=== PATIENT | female | born 1975 | race Caucasian/White ===

== ENCOUNTER 2020-01-13 11:35 | Outpatient (CLI) | payer BC, SELFPAY ==
--- NOTE | ~2020-01-13 | MMUS_ITS ---
MM diagnostic [facility] BI w lin, US breast LT limited DATE: 01/13/2020 12:11 (accession [id number]), 01/13/2020 12:56 (accession [id number]) INDICATION: Screening TECHNIQUE: Digital MLO and CC Tomosynthesis with composite 2-D views. Computer-aided detection. COMPARISON: 06/17/2019 diagnostic left digital mammogram and left Limited breast ultrasound 11/07/2018 diagnostic left digital mammogram and limited left breast ultrasound 10/08/2018, 06/01/2017 bilateral digital screening mammogram examinations DENSITY: There are scattered areas of fibroglandular density. FINDINGS: Mammogram: No suspicious mass or architectural distortion, malignant calcification, skin thickening o r retraction or significant new or developing density is detected. Occasional benign calcifications. ULTRASOUND: Limited left breast ultrasound examination reveals no suspicious mass or shadowing IMPRESSION: BIRADS Category 1: Negative RECOMMENDATION: Routine mammographic screening Reviewed, dictated and finalized at [facility]. Reviewed, dictated and finalized at location A. IMPRESSION: BIRADS Category 1: Negative RECOMMENDATION: Routine mammographic screening
== END 2020-01-13 11:36 | disposition home or self-care (01) ==
PROVIDERS: PCP Internal Medicine; Visit Provider Obstetrics & Gynecology Gynecology
DX: R92.8 Other abnormal and inconclusive findings on diagnostic imaging of breast (principal)
CPT/HCPCS: 76642; 77062; 77066; G0279

== ENCOUNTER 2021-10-21 09:18 | Outpatient (CLI) | payer BC, SELFPAY ==
--- NOTE | ~2021-10-21 | MM_ITS ---
EXAMINATION: MM screening [facility] BI w lin HISTORY: Screening mammogram TECHNIQUE: Craniocaudal and mediolateral oblique 3-D tomosynthesis images were obtained and synthetic 2-D images were generated. CAD analysis was submitted and interpreted. COMPARISON: 01/13/2020, 06/17/2019, 10/28/2018, 10/08/2018 BREAST PARENCHYMAL COMPOSITION: There are scattered areas of fibroglandular density. FINDINGS: There is no suspicious mass, calcification, or architectural distortion to suggest malignan cy in either breast. There has been no suspicious interval change. IMPRESSION: 1. No mammographic evidence of malignancy. 2. Recommend routine screening mammography in one year. BI-RADS Category 1: Negative Reviewed, dictated and finalized at location A.
== END 2021-10-21 09:19 | disposition home or self-care (01) ==
LOC: ANHIMG 09:21
PROVIDERS: PCP Internal Medicine; Visit Provider Obstetrics & Gynecology Gynecology
DX: Z12.31 Encounter for screening mammogram for malignant neoplasm of breast (principal)
CPT/HCPCS: 77063; 77067

== ENCOUNTER 2022-11-21 14:29 | Outpatient (CLI) | payer BC, SELFPAY ==
--- NOTE | ~2022-11-21 | MM_ITS ---
EXAMINATION: MM screening [facility] BI w lin HISTORY: Screening mammogram TECHNIQUE: Craniocaudal and mediolateral oblique 3-D tomosynthesis images were obtained and synthetic 2-D images were generated. CAD analysis was submitted and interpreted. COMPARISON: 10/21/2021, 01/13/2020, 06/17/2019, 10/08/2018 BREAST PARENCHYMAL COMPOSITION: There are scattered areas of fibroglandular density. FINDINGS: RIGHT BREAST: Focal asymmetry is present in the middle third of the upper breast. LEFT BREAST: No suspicious mass, calcification, or architectural distortion are identified to suggest malignancy. There has been no suspicious interval change. IMPRESSION: 1. Right breast focal asymmetry. 2. Additional mammographic views and possible breast ultrasound are recommended. BI-RADS Category 0: Incomplete: Needs additional imaging evaluation. Reviewed, dictated and finalized at location A. IMPRESSION: 1. Right breast focal asymmetry. 2. Additional mammographic views and possible breast ultrasound are recommended . BI-RADS Category 0: Incomplete: Needs additional imaging evaluation.
== END 2022-11-21 14:30 | disposition home or self-care (01) ==
PROVIDERS: PCP Internal Medicine; Visit Provider Obstetrics & Gynecology Gynecology
DX: Z12.31 Encounter for screening mammogram for malignant neoplasm of breast (principal); R92.8 Other abnormal and inconclusive findings on diagnostic imaging of breast
CPT/HCPCS: 77063; 77067

== ENCOUNTER 2022-12-07 13:45 | Outpatient (CLI) | payer BC, SELFPAY ==
--- NOTE | ~2022-12-07 | MM_ITS ---
EXAMINATION: MM diagnostic [facility] RT w lin HISTORY: Right breast focal asymmetry on screening mammogram TECHNIQUE: Additional 3-D tomosynthesis images of the right breast were performed and synthetic 2-D i mages were generated. CAD analysis was submitted and interpreted. COMPARISON: 11/21/2022, 10/21/2021, 01/13/2020 FINDINGS: There is a return to baseline fibroglandular appearance with spot compression of the right breast in the area questioned on screening mammogram. IMPRESSION: 1. No mammographic evidence of malignancy. 2. Recommend routine screening mammography in one year. BI-RADS Category 1: Negative Reviewed, dictated and finalized at location A.
== END 2022-12-07 13:46 | disposition home or self-care (01) ==
PROVIDERS: PCP Internal Medicine; Visit Provider Obstetrics & Gynecology Gynecology
DX: R92.8 Other abnormal and inconclusive findings on diagnostic imaging of breast (principal)
CPT/HCPCS: 77061; 77065; G0279

== ENCOUNTER 2024-01-28 15:09 | Outpatient (CLI) | payer BC, SELFPAY ==
--- NOTE | ~2024-01-28 | MM_ITS ---
EXAMINATION: MM screening [facility] BI w lin HISTORY: Screening TECHNIQUE: Craniocaudal and mediolateral oblique 3-D tomosynthesis images were obtained and synthetic 2-D images were generated. CAD analysis was submitted and interpreted. COMPARISON: Comparison to multiple prior studies sequentially, with oldest reviewed study dated 01/12. BREAST PARENCHYMAL COMPOSITION: Not dense: There are scattered areas of fibroglandular density. FINDINGS: There is no evidence of suspicious mass, calcification, or architectural distortion to sugg est malignancy in either breast. There has been no suspicious interval change. IMPRESSION: 1. No mammographic evidence of malignancy. 2. Recommend routine screening mammography in one year. BI-RADS Category 1: Negative Reviewed, dictated and finalized at location B.
== END 2024-01-28 15:10 ==
LOC: MICIMG 15:11
PROVIDERS: PCP Obstetrics & Gynecology Gynecology; Visit Provider Obstetrics & Gynecology Gynecology
DX: Z12.31 Encounter for screening mammogram for malignant neoplasm of breast (principal)
CPT/HCPCS: 77063; 77067

== ENCOUNTER 2024-09-29 09:15 | Outpatient (CLI) | payer BC, SELFPAY ==
--- NOTE | ~2024-09-29 | US_ITS ---
US transvaginal Ordering provider: Deedee Rahman MD History: . postmenopausal bleeding . Comparison: None. Technique: endovaginal ultrasound of the pelvis (Doppler ultrasound interrogation techniques used as needed for this exam.) FINDINGS: CERVIX: Normal. UTERUS: Measures 9.8x 4.9x 5.8 cm in length which is within normal limits and is anteverted. Subsero us fibroid is seen in the fundus measuring 5 x 5.4 x 5.9 cm. Cystic area seen posterior to the endome trial cavity measuring 0.8 x 0.6 x 0.6 cm. Fibroid is also seen anterior to the endometrial cavity me asuring 2 x 1.7 x 2.2 cm. ENDOMETRIUM: Normal in thickness measuring 7 mm. No endometrial masses, cysts or fluid. CUL DE SAC: No free fluid. RIGHT OVARY: Normal in size measuring 3.2x 2.1x 1.9 cm. Normal echotexture. Doppler vascular flow pre sent. LEFT OVARY: Normal in size measuring 2.7x 2.2x 2.8 cm. Normal echotexture. Doppler vascular flow pres ent. Follicles are seen. ADNEXA: Normal. No mass. IMPRESSION: Multiple fibroids. Otherwise, normal pelvic ultrasound. Reviewed, dictated and finalized at location A.
== END 2024-09-29 09:16 | disposition home or self-care (01) ==
LOC: MICIMG 09:17
PROVIDERS: PCP Obstetrics & Gynecology Gynecology; Visit Provider Obstetrics & Gynecology Gynecology
DX: D26.1 Other benign neoplasm of corpus uteri (principal); N95.0 Postmenopausal bleeding
CPT/HCPCS: 76830

== ENCOUNTER 2024-10-21 15:52 | Outpatient (CLI) | payer BC, SELFPAY ==
--- OUTSIDE RECORDS SUMMARY | 2024-10-21 17:17 | XMS_ITS | Clinical Summary ---
Author Organization [facility] Address [address] [place] [address] Phone Care Team Providers Care Movement Assembler Name Role Phone Unavailable Primary Care Provider Unavailabl e Encounters Date Type Department Care Team Description 10/08/2024 External Device Data [facility] ABSTRACTION Provider, Abstract 09/30/2024 External Device Data [facility] ABSTRACTION Provider, Abstract 09/30/2024 External Device Data [facility] ABSTRACTION Provider, Abstract 09/27/2024 External Device Data [facility] ABSTRACTION Provider, Abstract 09/26/2024 External Device Data [facility] ABSTRACTION Provider, Abstract 09/23/2024 External Device Data [facility] ABSTRACTION Provider, Abstract 09/09/2024 External Device Data [facility] ABSTRACTION Provider, Abstract 08/14/2024 External Device Data [facility] ABSTRACTION Provider, Abstract 08/12/2024 External Device Data [facility] ABSTRACTION Provider, Abstract 08/12/2024 External Device Data [facility] ABSTRACTION Provider, Abstract 08/07/2024 Ancillary Procedure [facility] ([facility] [address] [place] [id number] Luís Samaniego MD Left upper quadrant pain from Last 3 Months Social History Tobacco Use Types Packs/Day Years Used Date Smoking Tobacco: Never Assessed Comments Unknown Sex and Gender Information Value Date Recorded Sex Assigned at Not on file 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
--- OUTSIDE RECORDS SUMMARY | 2024-10-21 17:17 | XMS_ITS | Continuity of Care Document ---
Author Organization [employer] Address [address] [place] [address] Phone Care Team Providers Care Social Insurance Specialist Name Role Phone Luís Samaniego MD Unavailable Unavailable Allergies, Adverse Reactions, Alerts Substance Reaction Status Criticality Sulfa (Sulfonamide Antibiotics) Hives Active No Information CITALOPRAM HYDROBROMIDE Other Active No I nformation Medications Medication Instructions Dosage Effective Dates (start - stop) Status Comments BUSPIRONE HYDROCHLORIDE 7.5MG TABLET TAKE ONE (1) TABLET BY ORAL ROUTE TWO (2) TIMES EVERY DAY - Active hydrochlorothiazide 12.5 mg tablet take 1 tablet by oral route every day 12.5 MG - Active losartan 25 mg tablet take 1 tablet by oral route every day 25 MG - Active omeprazole 40 mg capsule,delayed release take 1 capsule by oral route every day - Active hydrocortisone 2.5 % topical cream with perineal applicator apply by topical route 2 times every day to the affected area(s) - Active Dr. Imtiaz Dillon-1 kit/container ketoconazole 2 % shampoo apply by topica l route every day to the affected area(s), lather, leave in place for 5 minutes, and then rinse off with water 0.00 - Active Vitamin D3 2,000 unit capsule take 1 capsule by oral route every day - Active Procedures Procedure Date FALL RISK ASSESSMENT DOC'D PRES/ABSN URINE INCON ASSESS Pt inelig neg scrn depres CBC, INC PLATELETS AND DIFFERENTIAL COMPREHEN METABOLIC PANEL CMP ROUTINE VENIPUNCTURE EKG (ELECTROCARDIOGRAM) OFFICE ALIEV-IZD-LNFIRINC BODY MASS INDEX DOCD SYST BP LT 130 MM HG DIAST BP < 80 MM HG FALL RISK ASSESSMENT DOC'D PRES/ABSN URINE INCON ASSESS Pt inelig neg scrn depres CBC, INC PLATELETS AND DIFFERENTIAL COMPREHEN METABOLIC PANEL [facility] LIPID PANEL VITAMIN D, 25-HYDROXY ROUTINE VENIPUNCTURE PREVENTATIVE-EST: 40-64 BODY MASS INDEX DOCD SYST BP LT 130 MM HG DIAST BP 80-89 MM HG FALL RISK ASSESSMENT DOC'D PRES/ABSN URINE INCON ASSESS Pt inelig neg scrn depres COMPREHEN METABOLIC PANEL [facility] VITAMIN B12 (SERUM) VITAMIN D, 25-HYDROXY ROUTINE VENIPUNCTURE OFFICE [id number]-MBLIISLS Visit Complexity Inherent To E/M 2023 BODY MASS INDEX DOCD SYST BP LT 130 MM HG DIAST BP < 80 MM HG OFFICE [id number]-UAD-OMQDGRYN BODY MASS INDEX DOCD SYST BP LT 130 MM HG DIAST BP 80-89 MM HG FALL RISK ASSESSMENT DOC'D PRES/ABSN URINE INCON ASSESS Pt inelig neg scrn depres CBC, INC PLATELETS AND DIFFERENTIAL COMPREHEN METABOLIC PANEL CMP LIPID PANEL VITAMIN D, 25-HYDROXY URINALYSIS, DIPSTICK (UA) - Office Lab N ROUTINE VENIPUNCTURE PREVENTATIVE-EST: 40-64 BODY MASS INDEX DOCD SYST BP LT 130 MM HG DIAST BP 80-89 MM HG FALL RISK ASSESSMENT DOC'D PRES/ABSN URINE INCON ASSESS Pt inelig neg scrn depres CBC, INC PLATELETS AND DIFFERENTIAL CYCLIC CITRULLINE PEPTIDE (CCP) 023 RHEUMATOID FACTOR: QN RBC SED RATE, AUTOMATED VITAMIN D, 25-HYDROXY ROUTINE VENIPUNCTURE OFFICE [id number]-[id number]-VIRJUPIT BODY MASS INDEX DOCD SYST BP LT 130 MM HG DIAST BP 80-89 MM HG FALL RISK ASSESSMENT DOC'D PRES/ABSN URINE INCON ASSESS Pt inelig neg scrn depres EKG (ELECTROCARDIOGRAM) OFFICE [id number]-ROL-[id number] BODY MASS INDEX DOCD SYST BP LT 130 MM HG DIAST BP 80-89 MM HG FALL RISK ASSESSMENT DOC'D PRES/ABSN URINE INCON ASSESS [facility]ALTH PANEL LIPID PANEL VITAMIN D, 25-HYDROXY ROUTINE VENIPUNCTURE HEMOGLOBIN A1C HGA1C, GLYCO Brief Emotional/Behavioral A ssessment, With Scoring/Doct, Per Stndrd Instrument Pt inelig neg scrn depres PREVENTATIVE-EST: 40-64 2022 BODY MASS INDEX DOCD SYST BP LT 130 MM HG DIAST BP < 80 MM HG FALL RISK ASSESSMENT DOC'D PRES/ABSN URINE INCON ASSESS Brief Emotional/Behavioral A ssessment, With Scoring/Doct, Per Stndrd Instrument Clin depression screen doc CBC, INC PLATELETS AND DIFFERENTIAL COMPREHEN METABOLIC PANEL CMP LIPID PANEL VITAMIN D, 25-HYDROXY ROUTINE VENIPUNCTURE HEMOGLOBIN A1C HGA1C, GLYCO PREVENTATIVE-EST: BODY MASS INDEX DOCD SYST BP LT 130 MM HG DIAST BP < 80 MM HG SCREENING COLONOSCOPY ; HIGH RISK FALL RISK ASSESSMENT DOC'D PRES/ABSN URINE INCON ASSESS Pt inelig neg scrn depres CBC, INC PLATELETS AND DIFFERENTIAL COMPREHEN METABOLIC PANEL CMP 0 LIPID PANEL VITAMIN D, 25-HYDROXY ROUTINE VENIPUNCTURE PREVENTATIVE-EST: BODY MASS INDEX DOCD SYST BP LT 130 MM HG DIAST BP < 80 MM HG Advance Directives Directive Yes / No Effective Date File Name No Information Encounters Encounter Description Practice Location Reason(s) For Visit Diagnoses Date Provider Providers Copied on Encounter [employer], [address], [place], [place], [address] , [place] tel: [phone] [facility] No Information Sep-2 5 Aden Staley. [address] [facility], [address], [place], [place], [address], [place]. tel:[phone] [employer], [address], [place], [place], [address] , [place] tel: [phone] [facility] No Information Mar-0 5 Aden Staley. [address] [place] [address], [address], [place], [place], [address], . tel:[phone] [employer] [facility], [address], [place], [place], [address] , tel: [phone] [facility] Left upper quadrant painAbdominal crampsGastroe sophageal reflux disease, unspecified whether esophagitis presentChest pain, unspecified type 5 Aden Staley. [address] [place] [address], [address], [place], [place], [address], . tel:[phone] OFFICE [id number] TAILED [employer] [facility], [address], [place], [place], [address] , tel: [phone] [facility] pain beneath ribs (chief complaint)Ch ronic Conditions (chief complaint)ch ronic conditions (chief complaint) Body mass index [BMI] 36.0-36.9, adultLUQ abdominal painChest pressurePrima ry hypertensionC lass 2 obesity without serious comorbidity with body mass index (BMI) of 36.0 to 36.9 in adult, unspecified obesity typeGastroeso phageal reflux disease without esophagitis 5 Mervin Ibanez. [address] [place] [address], [address], [place], [place], [address], . tel:[phone] Referring Provider: Luís Samaniego, [address] [place] [address] [address] , [place], [address] . tel:[phone] [employer], [address] [facility], [place], [place], [address] , tel: [phone] [facility] No Information 4 Aden Staley. [address] [place] [address], [address], [place], [place], [address], . tel:[phone] PREVENTATIVE -EST: 40-64 [facility], [id number] [place] [address], [address] , tel: [phone] [facility] preventive exam (chief complaint)Ch ronic Conditions (chief complaint)ch ronic conditions (chief complaint) Encounter for general adult medical examination without abnormal findingsPrima ry hypertensionM ixed hyperlipidemi aVitamin D deficiencyGas troesophageal reflux disease without esophagitisBo dy mass index [BMI] 35.0-35.9, adultClass 2 severe obesity with serious comorbidity and body mass index (BMI) of 35.0 to 35.9 in adult, unspecified obesity typeAnxiety Jun- 4 Mervindevan Stocka. [address] [place] [address], [address], [place], [place], [address], . tel:[phone] Referring Provider: Marcelle Jeffries, [address] [place] [address] [address], [place], [address] . tel:[phone] OFFICE [id number]-[id number]-PX TAILED [employer], [address], [place], [place], [address] , tel:[phone] [facility] left foot numbness (chief complaint)Ch ronic Conditions (chief complaint)ch ronic conditions (chief complaint) Body mass index [BMI] 35.0-35.9, adultParesthe jack of left footEssential hypertensionV itamin D deficiencyTic k bite of multiple sitesAnxiety Dec- 4 Mervin Ibanez. [address] [place] [address], [address], [place], [place], [address], . tel:[phone] Referring Provider: Luís Samaniego, [address] [place] [address] [address], [place], [address] . tel:[phone] OFFICE [id number] PANDED [employer], [address], [place], [place], [address] , tel:[phone] [facility] hemorrhoids (chief complaint) Other hemorrhoidsOt her constipation Dec- 4 Victor Hugo Lakhani. [address] [place] [address], [address], . tel:[phone] Referring Provider: Luís Samaniego, [address] [place] [address] [address], [place], [address] . tel:[phone] PREVENTATIVE -EST: 40-64 [employer] [facility], [address], [place], [place], [address] , tel:[phone] [facility] preventive exam (chief complaint)Ch ronic Conditions (chief complaint)ch ronic conditions (chief complaint) Body mass index [BMI] 35.0-35.9, adultEncounte r for general adult medical examination without abnormal findingsMixed hyperlipidemi aGastroesopha geal reflux disease without esophagitisVi tamin D deficiencyCla ss 2 obesity due to excess calories without serious comorbidity with body mass index (BMI) of 35.0 to 35.9 in adultEssentia l hypertension 3 Mervin Ibanez. [address] [facility], [address] , [place], [place], [address], . tel:[phone] Referring Provider: Luís Samaniego, [address] [place] [address] [address] , [place], [address] . tel:[phone] [employer], [address], [place], [place], [address] , tel:[phone] [facility] No Information 3 Aden Staley. [address] [place] [address], [address] , [place], [place], [address], . tel:[phone] OFFICE [id number] [employer], [address], [place], [place], [address] , tel: [phone] [facility] left shoulder pain (chief complaint)ri ght elbow pain (chief complaint)Cortney int pain (chief complaint)Ch ronic Conditions (chief complaint) Body mass index [BMI] 34.0-34.9, adultPain, joint, shoulder, leftRight elbow tendinitisEss ential hypertensionP ain in joints of right handPain in joints of left handVitamin D deficiencyAnx iety 3 Mervin Ibanez. [address] [facility], [address] , [place], [place], [address], . tel:[phone] Referring Provider: Marcelle Jeffries, [address] [place] [address] [address], [place], [address] . tel:[phone] OFFICE [id number]-BJ [employer], [address], [place], [place], [address] , tel:[phone] [facility] Upper respiratory infection (chief complaint)Pa lpitations (chief complaint)Ch ronic Conditions (chief complaint)ch ronic conditions (chief complaint) PalpitationsM ixed hyperlipidemi aClass 1 obesity due to excess calories with body mass index (BMI) of 32.0 to 32.9 in adult, unspecified whether serious comorbidity presentEssent ial hypertensionA cute URI 3 Mervin Ibanez. [address] [facility], [address], [place], [place], [address], . tel:[phone] Referring Provider: Luís Samaniego, [address] [place] [address] [address], [place], [address] . tel:[phone] PREVENTATIVE -EST: [employer], [address], [place], [place], [address] , tel: [phone] [facility] preventive exam (chief complaint)Ch ronic Conditions (chief complaint) Encounter for general adult medical examination without abnormal findingsVitam in D deficiencyGas troesophageal reflux disease without esophagitisMi xed hyperlipidemi aAnxietyPalpi tationsFamily history of diabetes mellitusBody mass index [BMI] 31.0-31.9, adult 2 Mervin Ibanez. [address] [facility], [address], [place], [place], [address], . tel:[phone] Referring Provider: Marcelle Jeffries, [address] [place] [address] [address] , [place], [address] . tel:[phone] [employer], [address], [place], [place], [address] , tel:[phone] [facility] Leg cramps 2 Mervin Ibanez. [address] [facility], [address], [place], [place], [address], . tel:[phone] PREVENTATIVE -EST: [employer], [address], [place], [place], [address] , tel: [phone] [facility] preventive exam (chief complaint)Ch ronic Conditions (chief complaint) Body mass index [BMI] 34.0-34.9, adultEncounte r for preventive health examinationMi xed hyperlipidemi aClass 1 obesity with serious comorbidity and body mass index (BMI) of 34.0 to 34.9 in adult, unspecified obesity typeGastroeso phageal reflux disease without esophagitisVi tamin D deficiencyInf luenza vaccine refusedImpair ed fasting glucoseAnxiet y Nov- 1 Mervin Ibanez. [address] [place] [address], [address], [place], [place], [address], . tel:[phone] Referring Provider: Luís Samaniego, [address] [place] [address] [address], [place], [address] . tel:[phone] [employer], [address], [place], [place], [address] , tel:[phone] [facility] No Information 0 Wilma Kitchen. [address] [place] [address] [place], [address], [place]. tel:[phone] Referring Provider: Marcelle Jeffries, [address] [place] [address] [address], [place], [address] . tel:[phone] PREVENTATIVE -EST: 40-64 [employer], [address], [place], [place], [address] , [place] [phone] [facility] preventive exam (chief complaint)Ch ronic Conditions (chief complaint) Body mass index (BMI) 34.0-34.9, adultEncounte r for preventive health examinationMi xed hyperlipidemi aEssential hypertensionG astroesophage al reflux disease without esophagitisVi tamin D deficiency 0 Mervin Ibanez. [address] [facility], [address] , [place], [place], [address], [place]. tel:[phone] Referring Provider: Luís Samaniego, [address] [place] [address] [address] , [place], [address] . tel:[phone] [employer], [address], [place], [place], [address] , tel: [phone] [facility] No Information 9 Aden Staley. [address] [place] [address], [address], [place], [place], [address], . [phone] [facility], [address], [place], [place], [address] , tel: [phone] [facility] Body mass index (BMI) 36.0-36.9, adultEssentia l hypertensionM ixed hyperlipidemi aUpper respiratory tract infection, unspecified type Mervin Ibanez. [address] [place] [address], [address], [place], [place], [address], . [phone] Referring Provider: Luís Samaniego, [address] [place] [address] [address], [place], [address] . tel:[phone] [facility], [address], [place], [place], [address] , tel: [phone] [facility] Body mass index (BMI) 35.0-35.9, adultAnxietyM ixed hyperlipidemi aGastroesopha geal reflux disease, esophagitis presence not specifiedVita min D deficiencyRec urrent major depressive disorder, in partial remissionClas s 2 obesity without serious comorbidity with body mass index (BMI) of 35.0 to 35.9 in adult, unspecified obesity type Mervin Ibanez. [address] [place] [address], [address], [place], [place], [address], . [phone] Referring Provider: Luís Samaniego [address] [place] [address] [address], [place], [address] . tel:[phone] [facility], [address], [place], [place], [address] , tel: [phone] [facility] Obesity, unspecifiedVi tamin D deficiencyGas troesophageal reflux disease without esophagitisVi sit for preventive health examination Mervin Ibanez. [address] [place] [address], [address], [place], [place], [address], . [phone] Referring Provider: Luís Samaniego, [address] [place] [address] [address], [place], [address] . tel:[phone] [employer], [address], [place], [place], [address] , [place] tel: [phone] [facility] Gastroesophag eal reflux disease without esophagitisAn xietyHyperlip idemia, unspecified hyperlipidemi a typeVitamin D deficiencyVis it for preventive health examinationFa tigue, unspecified typePharyngit is, unspecified etiology 6 Mervindevan Ibanez. [address] [facility], [address], [place], [place], [address], [place]. tel:[phone] Referring Provider: Luís Samaniego, [address] [place] [address] [address], [place], [address] . tel:[phone] [employer], [address], [place], [place], [address] , [place] tel: [phone] [facility] Joint painVitamin D deficiencyFeb rileMicroscop ic hematuriaHist ory of fall/At Risk For FallingScreen ing for unspecified condition Mervin Ibanez. [address] [facility], [address], [place], [place], [address], [place]. tel:[phone] Referring Provider: John Oseguera, [address] [place] [address], [address] . tel:[phone] [employer], [address], [place], [place], [address] , [place] tel: [phone] [facility] Screening examination for pulmonary tuberculosis 3 Oumar Lopez. [address] [place] [address], [address], [place]. tel:[phone] Referring Provider: John Oseguera, [address] [place] [address], [address] . tel:[phone] [employer], [address], [place], [place], [address] , [place] tel: [phone] [facility] FatigueWeight gainAnxietyHy perlipidemiaE sophageal refluxSeasona l allergiesFami ly history of type 2 diabetes mellitusVitam in D deficiency 3 Mervin Ibanez. [address], [address], [place], [place], [address], [place]. [phone] Referring Provider: John Oseguera, [address] [place] [address], [place], [address] . tel:[phone] [employer], [address], [place], [place], [address] , [place] tel: [phone] [facility] Anxiety state, unspecifiedOt her and unspecified hyperlipidemi aEsophageal reflux 3 Mervin Ibanez. [address], [address], [place], [place], [address], [place]. [phone] [employer], [address], [place], [place], [address] , [place] tel: [phone] [facility] Pain in limbAnxiety state, unspecified 1 Mervin Ibanez. [address], [address], [place], [place], [address], [place]. tel:[phone] [employer], [address], [place], [place], [address] , [place] tel: [phone] [facility] No Information 0 Mervin Ibanez. [address], [address], [place], [place], [address], [place]. tel:[phone] [employer], [address], [place], [place], [address] , [place] tel: [phone] [facility] LONG-TERM USE MEDS NECHYPERLIPID EMIA NEC/NOSCHEST PAIN NECVITAMIN D DEFICIENCY NOSMALAISE AND FATIGUE NEC 0 No Information [employer], [address], [place], [address] , [place] tel: [phone] [facility] ERYTHEMATOUS COND NECALOPECIA NOSSEBORRHEAE SOPHAGEAL REFLUXANXIETY STATE NOS 0 Mervin Ibanez. [address], [address], [place], [place], [address], [place]. [phone] Family History Family Member Type Diagnosis Age At Onset Father Problem (finding) Renal disease Mother Problem (finding) raised blood lipids Father Problem (finding) dialysis Brother Problem (finding) hypertension Father Problem (finding) diabetes melli tus in first degree relative Father Problem (finding) coronary arter iosclerosis (Cause Of ) Father Problem (finding) Myocardial infarction Father Problem (finding) hypertension Mother Problem (finding) osteoarthritis Mother Problem (finding) hypertension Brother Problem Diabetes mellitus Immunizations Vaccine Date Status Comments Tdap administered Note: [facility] ; Source: Other Provider Payers Payer name Insurance type Covered constitution party ID Authoriza tiblayne(s) [facility] ACCESS BL [id number] Social History Type Description Quantity Date Captured Comments Alcohol Use Details Unknown Caffeine Use Details Unknown Tobacco Use Status No Information Smoking Status No Information Sex Female Chief Complaint And Reason For Visit No Information Reason For Referral Reason For Referral No Information Plan Of Treatment Date Type Action Status Goal Dietary manageme nt education, guidance, and counseling completed Goal Dietary manageme nt education, guidance, and counseling completed Goal Dietary manageme nt education, guidance, and counseling completed Goal Dietary manageme nt education, guidance, and counseling completed Goal Dietary manageme nt education, guidance, and counseling completed Goal Dietary manageme nt education, guidance, and counseling completed Goal Dietary manageme nt education, guidance, and counseling completed Goal Dietary manageme nt education, guidance, and counseling completed Referral Referred To: [address] [place] [address], [id number] Ordered: ABDOMINAL CAT W/O CONTRAST ordered Appointment [facility] [place] BOOKED Future Order: Radiology Order AB DOMINAL CAT W/O CONTRAST ([id number]), Sent on: Sent History Of Present Illness Encounter Date Complaint History Of Prese nt Illness pain beneath ribs The symptoms b fabian 7 to 10 days ago. The patient states the symptoms are acute and are of new onset. She states she has a pain which is sometimes 'sharp/stabbing, sometimes achy', She states she notices more with sitting and after eating. Denies nausea or vomiting. States it is mostly left sided, just beneath ribs, may sometimes go up to her chest. Denies shortness of breath. Has taken omeprazole pretty regularly. She states 20-30 min after eating she will 'sometimes' have pain. States it lasts about 70% of the day, states pain is 4-5 out of 10 . Sometimes feels it go up to her chest. Chronic Conditions *See Chronic Conditions HPI chronic conditions *See Chronic Conditions [facility] preventive exam : 4. Manuela ty: Term: 3. spontaneous: 1. Livin. The patient states using vasectomy for control. Last LMP was 06/22/2023. Patient's menses is absent. Details: she will see tank calibrator again in Aug 2024, states she had mammogram in Aug 2023- probably at [facility]. Negative for: breast discharge, breast lump(s) and breast pain. Positive for: breast self exam. Menopausal symptoms negative for: hot flashes, night sweats and vaginal dryness. Associated symptoms include anxiety, depression and sleep disturbances. Pertinent negatives include abnormal bleeding (hematology), abnormal vaginal bleeding, decreased libido, difficulty falling sleep, dyspareunia, history of infertility, nocturia, sexual dysfunction, urinary incontinence, urinary urgency, vaginal discharge and vaginal itching. Diet healthy. Patient reports getting calcium from dietary sources. Patient reports taking a vitamin D supplement daily. Patient does not take multivitamins. Patient does not take Folic acid.The patient states Patient's exercise level is moderate and frequency is occasional. The patient does not use tobacco. The patient has not been exposed to passive smoke. The patient has not been exposed to passive vaping. The patient does not drink alcohol. Additional information: She is here today for a preventive exam. She sees tank calibrator for well woman exams. She is , she does not smoke or drink alcohol. She does not take flu vaccines and did not have any COVID vaccines. She states she had a mammogram in Spring 2023, probably at [facility] - states it was fine and report went to tank calibrator- Dr Rahman. Colonoscopy was in December 2019- she states she is going to call to schedule follow up for December 2024.. chronic conditions *See Chronic Conditions HPI Chronic Conditions *See Chronic Conditions HPI Chronic Conditions *See Chronic Conditions HPI left foot numbness She notes she has had some left foot numbness/tingling off and on beginning 12/27 or 12/28. She notes she had a weekend trip to [facility], [address] She also notes she had tick bites over Memorial weekend. Did not notice any bulls eye rings around bites but concerned she could have Lyme disease and wants to check labs today. She states occasionally her left hand will fall asleep. chronic conditions *See Chronic Conditions HPI hemorrhoids 48 year old laura cruz that presents for hemorrhoids. She noted a stringing protrusion from her rectum. She notes the area will go up into her rectum. Some itching denies drainage. Denies blood in stools, does have constipation. Some abdominal pain, some abdominal bloating. Can have generalized pain that is intermittent. She had [facility] examine and was normal. Last colon in 2019, due in 2025. preventive exam : 4. Manuela ty: Term: 3. spontaneous: 1. Livin. The patient states using vasectomy for control. Last LMP was 06/04/2023. Patient's menses is irregular with spotting flow. Negative for dysmenorrhea and menorrhagia. Negative for: breast discharge, breast lump(s) and breast pain. Positive for: breast self exam. Menopausal symptoms negative for: insomnia. Associated symptoms include anxiety and sleep disturbances. Pertinent negatives include abnormal bleeding (hematology), abnormal vaginal bleeding, depression, difficulty falling sleep, history of infertility, nocturia, sexual dysfunction, urinary incontinence, urinary urgency, vaginal discharge and vaginal itching. Diet healthy. Patient reports getting 500 mg/day calcium from dietary sources. Patient reports getting calcium supplement daily. Patient reports taking a vitamin D supplement daily. Patient does take multivitamins occasionally. Patient does not take Folic acid.The patient states Patient's exercise level is moderate and frequency is occasional. The patient does not use tobacco. The patient has not been exposed to passive smoke. The patient has not been exposed to passive vaping. The patient does not drink alcohol. Additional information: She is here today for a preventive exam and for biometrics for her 's employer. She does not smoke or drink alcohol. She is . She and her have 2 teen age sons and are raising their 3 yr old grandson as their daughter is . She declines vaccines. She sees tank calibrator for well woman exams- due to see in Jun 2023. She had mammogram in November 2022, colonoscopy in 2019.. chronic conditions *See Chronic Conditions HPI Chronic Conditions *See Chronic Conditions HPI Joint pain It occurs interm ittently and is fluctuating. Location: bilateral hand. The pain is aching. Context: there is no injury. There are no aggravating factors. The pain is relieved by OTC medicines: naproxen sodium. Associated symptoms include nocturnal awakening and nocturnal pain. Pertinent negatives include crepitus, joint instability, numbness, tingling in the arms and tingling in the legs. Hand Dominance: right. Additional information: She notes she has pain in her metacarpals and MIP of fingers intermittently. She notes her twin brother recently was diagnosed with RA which did not show in labs. Notes the pain began 'a while' ago but is intermittent, possibly more frequent recently. left shoulder pain Severity leve l is mild-moderate. It occurs intermittently and is fluctuating. Location: left shoulder. The pain is aching. Context: there is no injury. The pain is aggravated by lifting. The pain is relieved by OTC medicines (naproxen sodium). Associated symptoms include nocturnal awakening and nocturnal pain. Pertinent negatives include crepitus, joint instability, numbness, tingling in the arms and tingling in the legs. Hand Dominance: right. Additional information: She notes she began having left shoulder pain a few weeks ago. Does not know of an injury. She has a 3 yr old grandson who she carries at times. She states it is better today. Was out of town for 2 days and 'rested' more. has full ROM. Used aleve with some relief, no heat or ice used. right elbow pain Severity level is mild-moderate. It occurs intermittently and is improving. Location: right elbow. There is no radiation. The pain is aggravated by lifting. The pain is relieved by OTC medicines: naproxen sodium. Associated symptoms include nocturnal awakening and nocturnal pain. Pertinent negatives include crepitus, joint instability, numbness, tingling in the arms and tingling in the legs. Hand Dominance: right. Additional information: She noted right elbow pain recently, used naproxen with some relief. States she has pain at night sometimes, does not have numbness or tingling. Improved after couple days of being out of town and minimal lifting. Chronic Conditions *See Chronic Conditions HPI Upper respiratory infection Onse t: 3 weeks ago. Severity: mild-moderate. The patient describes the cough as persistent and productive (of green sputum). It occurs persistently. The problem has not changed. Context: sick family member. Symptoms are aggravated by lying down. There are no relieving factors. Associated symptoms include cough, hoarseness, nasal congestion, post-nasal drainage and sinus pressure. Pertinent negatives include chills, dyspnea, dyspnea on exertion, epistaxis, fatigue, fever, heartburn, hemoptysis, sore throat and wheezing. Additional information: She states her son had similar symptoms initially treated as viral, then persisted and had a z pack which resolved symptoms. Notes symptoms ongoing for about 3 weeks, has used Mucinex without relief. Palpitations Onset: 6 weeks a go. Severity: mild. Duration: 1 to 2 minutes. There is no radiation. The patient describes it as dull. It occurs occasionally. The problem is unchanged. Context: awake and rest. Denies aggravating factors. Relieving factors include stop on their own. There are no associated symptoms. Pertinent negatives include abdominal pain, chest pain, diaphoresis, dizziness, dyspnea, edema, headache, heartburn, nausea, numbness, orthopnea, paresthesia, syncope, vomiting and weakness. Additional information: notes a 'fluttering' in her chest which last a maybe a minute or two, first noticed a couple of wks prior to Physical in Jun, still occurring. No pain or shortness of breath. Usually occur with rest Chronic Conditions *See Chronic Conditions HPI chronic conditions *See Chronic Conditions HPI preventive exam : 4. Manuela ty: Term: 3. spontaneous: 1. Livin. The patient states she uses vasectomy for control. Last LMP was 06/05/2022. Her menses is irregular. Negative for dysmenorrhea and menorrhagia. Negative for: breast discharge, breast lump(s) and breast pain. Positive for: breast self exam. Associated symptoms include anxiety and decreased libido. Pertinent negatives include abnormal bleeding (hematology), abnormal vaginal bleeding, depression, difficulty falling sleep, dyspareunia, history of infertility, nocturia, sexual dysfunction, sleep disturbances, urinary incontinence, urinary urgency, vaginal discharge and vaginal itching. Diet healthy. She reports getting calcium from dietary sources. She reports taking a vitamin D supplement daily. She does not take multivitamins. She does not take Folic acid.The patient states her exercise level is moderate and frequency is occasional. The patient does not use tobacco. She has not been exposed to passive smoke. She has not been exposed to passive vaping. She does not drink alcohol. Additional information: She is here today for a preventive exam. She sees tank calibrator for well woman exam - due to see this month. She is , she does not smoke or drink alcohol. She lives with her 2 sons and grandson. They are raising her grandson as their daughter in January 2021. She notes she keeps busy keeping up with a 2 year old. She had colonoscopy in December 2019, mammogram in October 2021. She does not get vaccines.. Chronic Conditions *See Chronic Conditions [facility] preventive exam : 4. Manuela ty: Term: 3. spontaneous: 1. Livin. The patient states she uses had vasectomy for control. Her menses is irregular with fluctuates flow. Negative for dysmenorrhea and menorrhagia. Negative for: breast discharge, breast lump(s) and breast pain. Positive for: breast self exam. Menopausal symptoms negative for: hot flashes, insomnia, night sweats and vaginal dryness. Associated symptoms include anxiety and depression. Pertinent negatives include abnormal bleeding (hematology), abnormal vaginal bleeding, decreased libido, difficulty falling sleep, dyspareunia, history of infertility, nocturia, sexual dysfunction, sleep disturbances, urinary incontinence, urinary urgency, vaginal discharge and vaginal itching. Diet some junk food. She reports getting calcium from dietary sources. She reports taking a vitamin D supplement daily. She is getting adequate sunlight exposure. She does not take multivitamins. She does not take Folic acid.The patient states her exercise level is moderate and frequency is occasional. The patient does not use tobacco. She has not been exposed to passive smoke. She has not been exposed to passive vaping. She does not drink alcohol. Additional information: She is here for a preventive exam. She notes she has not been to tank calibrator this year. She is , she does not smoke or drink alcohol. She has sons who are 17 and 13. Lost 19 yr old daughter in January suddenly. She and her are caring for their year old grandson presently. She had a colonoscopy in December 2019, She declines to have flu vaccine or Covid vaccine.. Chronic Conditions *See Chronic Conditions HPI preventive exam : 4. Manueal ty: Term: 3. spontaneous: 1. Livin. The patient states she uses had vasectomy for control. Her menses is regular. Negative for dysmenorrhea. Negative for: breast discharge, breast lump(s) and breast pain. Positive for: breast self exam. Menopausal symptoms negative for: hot flashes and insomnia. Associated symptoms include anxiety, decreased libido, difficulty falling sleep and sleep disturbances. Pertinent negatives include abnormal vaginal bleeding, depression, dyspareunia, history of infertility, nocturia, sexual dysfunction, urinary incontinence, urinary urgency, vaginal discharge and vaginal itching. Diet some junk food. She reports getting calcium from dietary sources. She reports taking a vitamin D supplement daily. She does not take multivitamins. She does not take Folic acid.The patient states her exercise level is moderate and frequency is occasional. The patient does not use tobacco. She has not been exposed to passive smoke. She has not been exposed to passive vaping. She does not drink alcohol. Additional information: She is here today for a preventive exam. She notes she just saw tank calibrator for well woman exam. She is going to have mammogram next week and colonoscopy on 01/15. 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 Has 3 children and recently added a grandson to her household. She does not smoke or drink alcohol.. Chronic Conditions *See Chronic Conditions HPI Functional Status Date Functional Assessmen t No Information Instructions Date Instruction Additional Infor mation She states she has a pain which is sometimes 'sharp/stabbing, sometimes achy', She states she notices more with sitting and after eating. Denies nausea or vomiting. States it is mostly left sided, just beneath ribs, may sometimes go up to her chest. Denies shortness of breath. Has taken omeprazole pretty regularly. She states 20-30 min after eating she will 'sometimes' have pain. States it lasts about 70% of the day, states pain is 4-5 out of 10 . Sometimes feels it go up to her chest. Related to LUQ abdominal pain Notes she has some p ressure in her chest with abdominal pain Related to Chest pressure Advise of any changes of symptom s Related to Gastroesophageal reflux disease without esophagitis Encouraged to watch diet for fats, increase exercise to work on weight loss. Related to Class 2 obesity without serious comorbidity with body mass index (BMI) of 36.0 to 36.9 in adult, unspecified obesity type Continue present karley n of care, advise of changes. Related to Primary hypertension Disease process Prescribed activity/ exercise education Related to Body mass index (BMI) 36.0-36.9, adult Dietary management e ducation, guidance, and counseling Related to Body mass index (BMI) 36.0-36.9, adult She is here today fo r a preventive exam. She sees tank calibrator for well woman exams. She is , she does not smoke or drink alcohol. She does not take flu vaccines and did not have any COVID vaccines. She states she had a mammogram in Spring 2023, probably at [facility] - states it was fine and report went to tank calibrator- Dr Rahman. Colonoscopy was in December 2019- she states she is going to call to schedule follow up for December 2024. Related to Encounter for general adult medical examination without abnormal findings She will advise of any changes. Related to Anxiety Encouraged to watch diet for fats, increase exercise to work on weight loss. Related to Class 2 severe obesity with serious comorbidity and body mass index (BMI) of 35.0 to 35.9 in adult, unspecified obesity type Continue present karley n of care, will advise of any changes. Related to Gastroesophageal reflux disease without esophagitis reviewing vitamin D today, will continue to supplement if appropriate. Related to Vitamin D deficiency Continue diet and ex ercise, review of lipids today Related to Mixed hyperlipidemia Continue present karley n of care, advise of changes. Related to Primary hypertension Prescribed activity/ exercise education Related to Body mass index (BMI) 35.0-35.9, adult Dietary management e ducation, guidance, and counseling Related to Body mass index (BMI) 35.0-35.9, adult Disease prevention Continue present karley n of care, medication is increased, to advise of progress. Related to Anxiety She notes she has lima d some left foot numbness/tingling off and on beginning 12/27 or 12/28. She notes she had a weekend trip to [facility], [address] She also notes she had tick bites over Memorial weekend. Did not notice any bulls eye rings around bites but concerned she could have Lyme disease and wants to check labs today. She states occasionally her left hand will fall asleep. Related to Paresthesia of left foot She wants to have te st for lyme disease-test ordered. Related to Tick bite of multiple sites continue meds, review labs. Rela shelbie to Essential hypertension Check of vitamin D today Related to Vitamin D deficiency Dietary management e ducation, guidance, and counseling Related to Body mass index (BMI) 35.0-35.9, adult Prescribed activity/ exercise education Related to Body mass index (BMI) 35.0-35.9, adult Disease process Take MiraLax dailyIn crease fiber in your diet Related to Other constipation Use the hydrocortiso ne cream twice daily for 2 weeks this will help with the internal and external hemorrhoidsAvoid straining with bowel movementsFollow up as needed in the officeYou will be due in 2025 for your next colonoscopy Related to Other hemorrhoids Continue present med s, monitor for swelling Related to Essential hypertension She is here today fo r a preventive exam and for biometrics for her 's employer. She does not smoke or drink alcohol. She is . She and her have 2 teen age sons and are raising their 3 yr old grandson as their daughter is . She declines vaccines. She sees tank calibrator for well woman exams- due to see in Jun 2023. She had mammogram in November 2022, colonoscopy in 2019. Related to Encounter for general adult medical examination without abnormal findings Encouraged to watch diet for fats, increase exercise to work on weight loss. Related to Class 2 obesity due to excess calories without serious comorbidity with body mass index (BMI) of 35.0 to 35.9 in adult Checking vitamin D t lillian, she will advise of dose of vitamin D she is using presently Related to Vitamin D deficiency Encouraged use of om eprazole daily, to try to avoid lifestyle and diet triggers Related to Gastroesophageal reflux disease without esophagitis review of lipids today Related t o Mixed hyperlipidemia Dietary management e ducation, guidance, and counseling Related to Body mass index (BMI) 35.0-35.9, adult Disease process Prescribed activity/ exercise education Related to Body mass index (BMI) 35.0-35.9, adult She notes she has pa in in her metacarpals and MIP of fingers intermittently. She notes her twin brother recently was diagnosed with RA which did not show in labs. Notes the pain began 'a while' ago but is intermittent, possibly more frequent recently Related to Pain in joints of left hand She noted right elbo w pain recently, used naproxen with some relief. States she has pain at night sometimes, does not have numbness or tingling. Improved after couple days of being out of town and minimal lifting Related to Right elbow tendinitis She notes she has pa in in her metacarpals and MIP of fingers intermittently. She notes her twin brother recently was diagnosed with RA which did not show in labs. Notes the pain began 'a while' ago but is intermittent, possibly more frequent recently Related to Pain in joints of right hand She notes she began having left shoulder pain a few weeks ago. Does not know of an injury. She has a 3 yr old grandson who she carries at times. She states it is better today. Was out of town for 2 days and 'rested' more. has full ROM. Used aleve with some relief, no heat or ice used Related to Pain, joint, shoulder, left she notes she takes buspirone most days as directed. She wonders about dose increase- she is unsure what dose she has at home- she does not think she is taking 10 mg dose - had been sent to her pharmacy after Jun 2022 appt. No thoughts of hurting herself or others. Related to Anxiety Continue present karley n of care, monitor for swelling Related to Essential hypertension will check vitamin D today Relat ed to Vitamin D deficiency Prescribed activity/ exercise education Related to Body mass index (BMI) 34.0-34.9, adult Dietary management e ducation, guidance, and counseling Related to Body mass index (BMI) 34.0-34.9, adult Disease process notes a 'fluttering' in her chest which last a maybe a minute or two, first noticed a couple of wks prior to Physical in Jun, still occurring. No pain or shortness of breath. Usually occur with rest, She has normal TSH in Jun 2022- will not repeat today. Related to Palpitations She states her son rudolph ad similar symptoms, initially treated as viral, then persisted and had a z pack which resolved symptoms. Notes symptoms ongoing for about 3 weeks, has used Mucinex without relief. Related to Acute URI Continue present plan of care. R elated to Essential hypertension Continue to work on weight loss, diet and exercise as able. Related to Class 1 obesity due to excess calories with body mass index (BMI) of 32.0 to 32.9 in adult, unspecified whether serious comorbidity present Encouraged to follow low fat diet. Discussed value of exercise on a daily basis. Related to Mixed hyperlipidemia Disease process She is here today fo r a preventive exam. She sees tank calibrator for well woman exam - due to see this month. She is , she does not smoke or drink alcohol. She lives with her 2 sons and grandson. They are raising her grandson as their daughter in January 2021. She notes she keeps busy keeping up with a 2 year old. She had colonoscopy in December 2019, mammogram in October 2021. She does not get vaccines. Related to Encounter for general adult medical examination without abnormal findings Checking hgba1c today Related to Family history of diabetes mellitus will check thyroid t lillian. She will advise if symptoms recur. Related to Palpitations She will continue pr esent plan of care, she will advise if symptoms change. Related to Anxiety Continue present karley n of care, review of lipids today Related to Mixed hyperlipidemia Continue present karley n of care, advise if symptoms change. Related to Gastroesophageal reflux disease without esophagitis checking vitamin D t lillian, she will continue med unless otherwise advised Related to Vitamin D deficiency Disease process Dietary management e ducation, guidance, and counseling Related to Body mass index (BMI) 31.0-31.9, adult Prescribed activity/ exercise education Related to Body mass index (BMI) 31.0-31.9, adult She is here for a pr eventive exam. She notes she has not been to tank calibrator this year. She is , she does not smoke or drink alcohol. She has sons who are 17 and 13. Lost 19 yr old daughter in January suddenly. She and her are caring for their year old grandson presently. She had a colonoscopy in December 2019, She declines to have flu vaccine or Covid vaccine. Related to Encounter for preventive health examination noted to have elevat ed glucose on labs, Related to Impaired fasting glucose Will increase buspir one- she will call with progress. She will continue to see counselor which she finds helpful. She agrees to call with any problems. Related to Anxiety She will advise if s he changes her mind and has the vaccines. Related to Influenza vaccine refused Will review vitamin D level and advise. Related to Vitamin D deficiency She will consider us ing every other day or decrease dose to try to take daily- she will advise of progress. Related to Gastroesophageal reflux disease without esophagitis Encouraged to watch diet more closely, increase exercise to daily as able. Related to Class 1 obesity with serious comorbidity and body mass index (BMI) of 34.0 to 34.9 in adult, unspecified obesity type Encouraged to follow low carbohydrate/low fat diet. Discussed value of exercise on a daily basis. Labs are drawn for follow up of chronic conditions Related to Mixed hyperlipidemia Dietary management e ducation, guidance, and counseling Related to Body mass index (BMI) 34.0-34.9, adult Disease process Prescribed activity/ exercise education Related to Body mass index (BMI) 34.0-34.9, adult She is here today fo r a preventive exam. She had well woman exam with Dr Rahman recently. She is scheduled for mammogram next week and colonoscopy on 01/15. 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 She does not smoke or drink alcohol. She does not take flu vaccines. Related to Encounter for preventive health examination Labs are drawn for f ollow up of chronic conditions Related to Vitamin D deficiency Continue present plan of care. R elated to Gastroesophageal reflux disease without esophagitis Continue present med s, monitor for swelling, Labs are drawn for follow up of chronic conditions Related to Essential hypertension Labs are drawn for f ollow up of chronic conditions Related to Mixed hyperlipidemia Disease process Prescribed activity/ exercise education Related to Body mass index (BMI) 34.0-34.9, adult Dietary management e ducation, guidance, and counseling Related to Body mass index (BMI) 34.0-34.9, adult Assessments Type Assessment Date No Information Patient Care Teams Name Effective Dates (start - stop) Status Members No Information
--- OUTSIDE RECORDS SUMMARY | 2024-10-21 17:17 | XMS_ITS | Clinical Summary ---
Author Organization [facility] Address [address] [place] [address] Care Team Providers Care Clinical Research Manager Name Role Phone Luís Samaniego MD Primary Care Provider [phone] Allergies Active Allergy Reactions Criticality Noted Date Comments Citalopram Hydrobromide Other (See comments) Low Erythromycin Nausea only Reaction: Nausea, Sulfa (Sulfonamide Antibiotics) Hives,Other (See comments) Reaction: Hives, , Reaction: Unknown, , Medications losartan (COZAAR) 25 mg tablet 2 Active hydroCHLOROthiazid e (HYDRODIURIL) 12.5 mg tablet 2 Active busPIRone (BUSPAR) 7.5 mg tablet 2 Active omeprazole (PriLOSEC) 40 mg capsule Take 1 capsule (40 mg total) by mouth daily 1 Active cyclobenzaprine (FLEXERIL) 10 mg tabletIndications: Cervical radiculopathy Take 1 tablet (10 mg total) by mouth 3 (three) times a day as needed for muscle spasms 30 tablet 4 Active Active Problems No known active problems Immunizations Immunization Administration Dates Next Due Td, adsorbed 05/25/2005 Medical History Medical History Date Comments 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 Hx Other Medical 02-DERM Hx Other Medical anxiety Anemia Anemia; Comments : APO 01/19/2014 - Hx Other Medical Headache, migra ine Depression Depression Hypertension Hypertension Family History Medical History Relation Name Comments Hypertension Brother Hypertension; Diabetes Father Diabetes mellit us; Heart disease Father Heart disease; Hypertension Father Hypertension; Hypertension Mother Hypertension; Cancer Other Family history of Cancer, unknown; Coronary artery disease Other Fami ly history of Coronary artery disease; Diabetes type II Other Family hist ory of Diabetes mellitus type 2; Hypertension Other Family history of Hypertension; Stroke Other Family history of Stroke; Other Neg Hx No history of C ancer, colon; Relation Name Status Comments Brother Father Mother Other Social History Tobacco Use Types Packs/Day Years Used Date Smoking Tobacco: Never Smokeless Tobacco: Never Alcohol Use Standard Drinks/Week Comments Yes 0 (1 standard drink = 0.6 oz pur e alcohol) Personal Safety Answer Date Recorded Getting School Help Needed Not on file 08/21 Comments Unknown Sex and Gender Information Value Date Recorded Sex Assigned at Not on file Legal Sex Female 5:28 AM 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 Gender Identity Not on file Sexual Orientation Not on file Obstetrics History Last Filed Vital Signs Vital Sign Reading Time Taken Comments Blood Pressure 124/86 08/21/2023 6:17 PM 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 Pulse 60 08/21/2023 6:17 PM 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 Temperature 36.2 C (97.1 F) 08/21/2023 6:17 PM 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 Respiratory Rate 18 08/21/2023 6:17 PM 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 Oxygen Saturation 99% 08/21/2023 6:17 PM 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 Inhaled Oxygen Concentration - - Weight 104.3 kg (230 lb) 08/21/2023 6:17 PM 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 Height 172.7 cm (5' 8 ) 08/21/2023 6:17 PM 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 Body Mass Index 34.97 08/21/2023 6:17 PM 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 Plan of Treatment Health Maintenance Due Date Last Done Comments Breast Cancer Screening-Mammogram 1975 Cervical Cancer Screening 1975 Colon Cancer Screening-Colonoscopy 1975 Depression Screening 1975 Hepatitis C Screening 1975 Hepatitis B Screening 1993 Regular Well Visit/Exam 18-64 1993 DTaP/Tdap/Td Vaccine (1 - Tdap) 05/26/2005 5 Influenza Vaccine (#1) 2024 Pneumococcal vaccine <65 Aged Out No longer eligible based on patient's age to complete this topic Insurance [employer] OOS Care Teams Clinical Research Manager Relationship Specialty Start Date End Date Luís Samaniego MD PCP - General 12/13/16
--- OUTSIDE RECORDS SUMMARY | 2024-10-21 17:17 | XMS_ITS | Referral Summary ---
Author Organization [facility] Address [address] [place] [address] Care Team Providers Care Supervisor Hospitality House Name Role Phone Luís Samaniego MD Primary Care Provider [phone] Allergies Active Allergy Reactions Criticality Noted Date [...] Administration Dates Next Due Td, adsorbed 05/25/2005 Social History Tobacco Use Types Packs/Day Years [...] on file Legal Sex Female 5:28 AM PATIENT CARE DIRECTOR Gender Identity Not on file Sexual Orientation Not on file Last Filed Vital Signs Vital Sign Reading Time Taken Comments Blood Pressure 124/86 08/21/2023 6:17 PM PATIENT CARE DIRECTOR Pulse 60 08/21/2023 6:17 PM PATIENT CARE DIRECTOR Temperature 36.2 C (97.1 F) 08/21/2023 6:17 PM PATIENT CARE DIRECTOR Respiratory Rate 18 08/21/2023 6:17 PM PATIENT CARE DIRECTOR Oxygen Saturation 99% 08/21/2023 6:17 PM PATIENT CARE DIRECTOR Inhaled Oxygen Concentration - - Weight 104.3 kg (230 lb) 08/21/2023 6:17 PM PATIENT CARE DIRECTOR Height 172.7 cm (5' 8 ) 08/21/2023 6:17 PM PATIENT CARE DIRECTOR Body Mass Index 34.97 08/21/2023 6:17 PM PATIENT CARE DIRECTOR Plan of Treatment Not on file Insurance [facility] BLUE ACC CHOICE OOS Care Teams Supervisor Hospitality House Relationship Specialty Start Date End Date Luís Samaniego MD PCP - General 12/13/16
--- OUTSIDE RECORDS SUMMARY | 2024-10-21 17:17 | XMS_ITS | Clinical Summary ---
Author Organization [facility] Address [address] [place] [address] Phone Care Team Providers Care Blender/Braze Applicator Name Role Phone Marcelle Jeffries APN, PARCEL CONTRACTOR Primary Care Provider [phone] Allergies Active Allergy Reactions Criticality Noted Date Comments Sulfa Antibiotics Hives 10/17/2017 Medications Cholecalciferol (VITAMIN D PO) Take by mouth. Active losartan (COZAAR) 25 MG Tablet TAKE 1 TABLET BY ORAL ROUTE EVERY DAY 03/10/2021 Active hydroCHLOROthia zide 12.5 MG Tablet TAKE 1 TABLET BY ORAL ROUTE EVERY DAY 03/17/2021 Active busPIRone (BUSPAR) 5 MG Tablet TAKE 1 TABLET BY ORAL ROUTE 2 TIMES EVERY DAY 03/24/2021 Active omeprazole (PriLOSEC) 40 MG CAPSULE DELAYED RELEASE TAKE ONE CAPSULE BY MOUTH DAILY 03/10/2021 Active naproxen (NAPROSYN) 500 MG Tablet Take 1 Tablet by mouth 2 times daily as needed for Mild or more severe pain. 20 Tablet 05/09/2023 Active Active Problems Problem Noted Date Diagnosed Date Pharyngitis 08/29/2018 Hypertension 08/29/2018 Social History Tobacco Use Types Packs/Day Years Used Date Smoking Tobacco: Never Smokeless Tobacco: Never Alcohol Use Standard Drinks/Week Comments No 0 (1 standard drink = 0.6 oz pur e alcohol) Comments No Sex and Gender Information Value Date Recorded Sex Assigned at Not on file Legal Sex Female 7:51 PM CDT Gender Identity Not on file Sexual Orientation Not on file Last Filed Vital Signs Vital Sign Reading Time Taken Comments Blood Pressure 138/92 05/09/2023 9:04 AM CDT Pulse 64 05/09/2023 9:04 AM CDT Temperature 36.7 C (98 F) 05/09/2023 9:04 AM CDT Respiratory Rate 16 05/09/2023 9:04 AM CDT Oxygen Saturation 99% 05/09/2023 9:04 AM CDT Inhaled Oxygen Concentration - - Weight 105.4 kg (232 lb 5.8 oz) 05/09/2023 9:04 AM CDT Height 174 cm (5' 8.5 ) 05/09/2023 9:04 AM CDT Body Mass Index 34.82 05/09/2023 9:04 AM CDT Plan of Treatment Health Maintenance Due Date Last Done Comments Hepatitis C Virus (HCV) Screening 1975 Mammogram 1975 TdaP Immunization 1975 Hepatitis B Immunization (1 of 3 - 19+ 3-dose series) 1994 Pap Smear 1996 Cervical Cancer Screening (CCS) 2005 HPV/Cotest 2005 Discussion re Starting/Frequ ency of Mammograms 2015 Colonoscopy 2020 Colorectal Cancer Screening 2020 Influenza Immunization (#1) 2024 SARS-COV-2 Immunization ( season) 2024 Respiratory Syncytial Virus (RSV) Immunization (Adult) (1 - 1-dose 75+ series) 2050 DTaP/Tdap/Td Immunization Discontinued 05/25/2005 Meningococcal Immunization (ACWY) Aged Out No longer eligible based on patient's age to complete this topic Pneumococcal Immunization Combined Aged Out No longer eligible b ased on patient's age to complete this topic Rotavirus Immunization Aged Out No lo nger eligible based on patient's age to complete this topic [place] [address] [place] [address] Care Teams Blender/Braze Applicator Relationship Specialty Start Date End Date Marcelle Jeffries APN, PARCEL CONTRACTOR [id number] [facility] [address] [place] [address] PCP - General Advanced Practice Nurse 04/01/21
[2024-10-21 20:04] LABS: Anion Gap 12 mmol/L (4-12); Blood Urea Nitrogen 18 mg/dL (7-17); Calcium 9.7 mg/dL (8.4-10.2); Carbon Dioxide 27 mmol/L (22-30); Chloride 101 mmol/L (98-107); Estimated Glomerular Filt Rate 47; Glucose 109 mg/dL (65-110); Potassium 4.4 mmol/L (3.4-5.0); Sodium 140 mmol/L (137-145)
== END 2024-10-21 15:53 | disposition home or self-care (01) ==
LOC: ANHBWCLAB 15:54
PROVIDERS: PCP Internal Medicine; Visit Provider Anesthesiology
DX: Z51.81 Encounter for therapeutic drug level monitoring (principal); Z79.899 Other long term (current) drug therapy
CPT/HCPCS: 36415; 80048

== ENCOUNTER 2024-10-27 00:18 | Day surgery (SDC) | payer BC, SELFPAY ==
[2024-10-20 09:50] VITALS: BMI 34.8
--- NOTE | 2024-10-20 09:59 | PC.NURSE ---
Report to the Outpatient Waiting Room, entrance under the green pavilion located off [facility], at time _0715_ on date _[id number]_. Planned Procedure Time: _0915_.? Time changes happen often and if your time is changed the preop area will call you the afternoon before. - You and your visitor will be asked to self-screen and do not enter if you have any COVID symptoms. Please call surgeon if you need to reschedule. - A mask is optional within the hospital at this time. Patients may have clear liquids (water, carbonated beverages, clear teas, apple juice) until 3 hours prior to surgery with a maximum of 20 ounces. - No food from midnight until time of surgery and no smoking, or chewing tobacco (or any form of nicotine). No chewing gum, candy or mints. Take only the following medications with a SIP of water on the morning of surgery: ___None DO NOT STOP ANY OF YOUR OTHER PRESCRIPTION MEDICATIONS PRIOR TO SURGERY EXCEPT THE FOLLOWING Hold all vitamins and supplements for 3 days per anesthesiologist. Medications to discontinue per physician Date to take last eebc___[phone]____ Please no make-up, nail lao, hairspray, perfume, deodorant, or body powder the day of surgery.? No jewelry (including any body piercings) or valuables the day of surgery, leave them at home.? Please take a shower or bath the night before, or the morning of, surgery with an antibacterial soap.? Wear comfortable, loose fitting clothing.? - Jewelry must be removed prior to entering the operating room.? Rings and piercings that are not removed may be cut off. - The hospital will not accept responsibility for valuables.? - Please leave all valuables, including medications, at home the day of surgery. If you are going home after surgery, a licensed hazmat truck driver must drive you home.? - NO public transportation without another adult if you receive anesthesia. - We recommend that an adult stay with you for 24 hours following discharge. - We also recommend that you do not drive, make important decision, drink alcoholic beverages, or take any drugs that were not prescribed by your health care provider for at least 24 hours after your discharge time. Follow any additional instructions given to you from your surgeon. Telephone instructions given to __Shaniqua__and asked if any additional questions and then verbalized understanding. Patient advised to call surgeon office or pre surgery nurse liaison [phone] if any additional questions.
--- NOTE | 2024-10-26 10:27 | P.PNAN_ITS ---
Anes - Initial Pre Proc Eval Procedure: Operation Date: 10/27/24 09:15 Proposed Procedures p Hysteroscopy Dilation and Curettage - Deedee Rahman MD Date/Time: 10/26/24 10:27 Surgeon: Deedee Rahman MD Pre Op Diagnosis: Post Menopausal Bleeding Patient Data Age: 49 Gender: F Height: 1.73 m Weight: 104 kg Allergies Allergy/AdvReac Type Severity Reaction Status Date / Time Sulfa (Sulfonamide Allergy Unknown Hives Verified 10/27/24 07:51 Antibiotics) Home Medications ?Medication ?Instructions ?Recorded ?Confirmed ?Type buspirone 7.5 mg tablet 7.5 mg PO BID 10/20/24 10/27/24 History cholecalciferol (vitamin D3) 125 5,000 unit PO DAILY 10/20/24 10/27/24 History mcg (5,000 unit) tablet (Vitamin D3) hydrochlorothiazide 12.5 mg tablet 12.5 mg PO HS 10/20/24 10/27/24 History losartan 25 mg tablet 25 mg PO HS 10/20/24 10/27/24 History magnesium citrate 83.3 mg chewable 8,303 mg PO HS 10/20/24 10/20/24 History tablet omeprazole 40 mg capsule,delayed 40 mg PO DAILY 10/20/24 10/27/24 History release Patient hx anesthesia problems: none Family hx anesthesia problems: none Results Review: All pre-operative results and documents have been reviewed as part of the pre- operative evaluation. [facility] Past Medical History Medical History (Updated 10/27/24 @ 08:27 by Rafy Walton DO) GERD (gastroesophageal reflux disease) (normal spontaneous vaginal delivery) X3 Depression Anxiety Hypertension Social History Social History Smoking status: Never smoker Living arrangements: with family Spiritual care concerns: No Anes - Eval Final PreProcedure Day of Procedure 10/26/24 10:27 Patient weight: obese Heart: regular rate and rhythm Lungs: clear to auscultation Airway: Mallampati scale class II Neurological: alert and oriented Last oral intake: >/= 8 hours ASA classification: III Emergent: no Anesthetic plan: proceed Anesthesia type and monitoring: general GIVS and standard monitoring Results Review: All pre-operative results and documents have been reviewed as part of the pre- operative evaluation. Informed Consent: The patient's anesthetic plan and its attendant risks and benefits were discussed with the patient/family/POA. Questions were solicited and answers provided to the satisfaction of the patient/family/POA.
--- OUTSIDE RECORDS SUMMARY | 2024-10-27 00:20 | XMS_ITS | Continuity of Care Document ---
Author Organization [employer] Address [address] [place] [address] Phone Care Team Providers Care Moss Picker Name Role Phone Luís Samaniego MD Unavailable [...] PANEL CMP ROUTINE VENIPUNCTURE EKG (ELECTROCARDIOGRAM) OFFICE [id number] BODY MASS INDEX DOCD SYST BP LT 130 MM HG DIAST BP < 80 MM HG FALL RISK ASSESSMENT DOC'D PRES/ABSN URINE INCON ASSESS Pt inelig neg scrn depres CBC, INC PLATELETS AND DIFFERENTIAL COMPREHEN METABOLIC PANEL [facility] LIPID PANEL VITAMIN D, 25-HYDROXY ROUTINE VENIPUNCTURE PREVENTATIVE-EST: 40-64 BODY MASS INDEX DOCD SYST BP LT 130 MM HG DIAST BP 80-89 MM HG FALL RISK ASSESSMENT DOC'D PRES/ABSN URINE INCON ASSESS Pt inelig neg scrn depres COMPREHEN METABOLIC PANEL [facility] VITAMIN B12 (SERUM) VITAMIN D, 25-HYDROXY ROUTINE VENIPUNCTURE OFFICE [id number] Visit Complexity Inherent To E/M 2023 BODY MASS INDEX DOCD SYST BP LT 130 MM HG DIAST BP < 80 MM HG OFFICE [id number] BODY MASS INDEX DOCD SYST BP LT [...] AUTOMATED VITAMIN D, 25-HYDROXY ROUTINE VENIPUNCTURE OFFICE [id number] BODY MASS INDEX DOCD SYST BP LT 130 MM HG DIAST BP 80-89 MM HG FALL RISK ASSESSMENT DOC'D PRES/ABSN URINE INCON ASSESS Pt inelig neg scrn depres EKG (ELECTROCARDIOGRAM) OFFICE [id number] BODY MASS INDEX DOCD SYST BP LT [...] Diagnoses Date Provider Providers Copied on Encounter [facility], [address], [place], [place], [address] , [place] tel: [phone] [facility] No Information Sep-2 5 Aden Staley. [address] [facility], [address], [place], [place], [address], [place]. tel:[phone] [facility], [address], [place], [place], [address] , [place] tel: [phone] [facility] No Information Mar-0 5 Aden Staley. [address] [place] [address], [address], [place], [place], [address], . tel:[phone] [employer], [address], [place], [place], [address] , tel: [phone] [facility] Left upper quadrant painAbdominal crampsGastroe sophageal reflux disease, unspecified whether esophagitis presentChest pain, unspecified type 5 Aden Staley. [address] [place] [address], [address], [place], [place], [address], . tel:[phone] OFFICE IJGAD-SLM-BX TAILED [employer], [address], [place], [place], [address] , tel: [phone] [facility] pain beneath ribs (chief complaint)Ch ronic Conditions (chief complaint)ch ronic conditions (chief complaint) Body mass index [BMI] 36.0-36.9, adultLUQ abdominal painChest pressurePrima ry hypertensionC lass 2 obesity without serious comorbidity with body mass index (BMI) of 36.0 to 36.9 in adult, unspecified obesity typeGastroeso phageal reflux disease without esophagitis 5 Mervin Ibanez. [address] [place] [address], [address], [place], [place], [address], . tel:[phone] Referring Provider: Luís Samaniego, [address] [place] [address] [address] , [place], [address] . tel:[phone] [facility], [address] [facility], [place], [place], [address] , tel: [phone] [facility] No Information 4 Aden Staley. [address] [place] [address], [address], [place], [place], [address], . tel:[phone] PREVENTATIVE -EST: 40-64 [facility] [employer], [address] [place] [address], [id number] , tel: [phone] [facility] preventive exam (chief complaint)Ch ronic Conditions [...] unspecified obesity typeAnxiety Jun- 4 Mervindevan Stocka. [address] [place] [address], [address], [place], [place], [address], . tel:[phone] Referring Provider: Marcelle Jeffries, [address] [place] [address] [address], [place], [address] . tel:[phone] OFFICE UBVVR-GVB-HL TAILED [facility], [address], [place], [place], [address] , tel:[phone] [facility] left foot numbness (chief complaint)Ch ronic Conditions (chief complaint)ch ronic conditions (chief complaint) Body mass index [BMI] 35.0-35.9, adultParesthe jack of left footEssential hypertensionV itamin D deficiencyTic k bite of multiple sitesAnxiety Dec- 4 Mervin Ibanez. [address] [place] [address], [address], [place], [place], [address], . tel:[phone] Referring Provider: Luís Samaniego, [address] [place] [address] [address], [place], [address] . tel:[phone] OFFICE XYORB-PDQ-UL PANDED [facility], [address], [place], [place], [address] , tel:[phone] [facility] hemorrhoids (chief complaint) Other hemorrhoidsOt her constipation Dec- 4 Victor Hugo Lakhani. [address] [place] [address], [address], . tel:[phone] Referring Provider: Luís Samaniego, [address] [place] [address] [address], [place], [address] . tel:[phone] PREVENTATIVE -EST: 40-64 [employer], [address], [place], [place], [address] , tel:[phone] [facility] preventive exam (chief complaint)Ch ronic Conditions [...] in adultEssentia l hypertension 3 Mervin Ibanez. [address] [facility], [address] , [place], [place], [address], . tel:[phone] Referring Provider: Luís Samaniego, [address] [place] [address] [address] , [place], [address] . tel:[phone] [facility], [address], [place], [place], [address] , tel:[phone] [facility] No Information 3 Aden Staley. [address] [place] [address], [address] , [place], [place], [address], . tel:[phone] OFFICE XBJCK-VYS-WL [employer] [address], [place], [place], [address] , tel: [phone] [facility] left shoulder pain (chief complaint)ri ght elbow pain (chief complaint)Cortney int pain (chief complaint)Ch ronic Conditions (chief complaint) Body mass index [BMI] 34.0-34.9, adultPain, joint, shoulder, leftRight elbow tendinitisEss ential hypertensionP ain in joints of right handPain in joints of left handVitamin D deficiencyAnx iety 3 Mervin Ibanez. [address] [facility], [address] , [place], [place], [address], . tel:[phone] Referring Provider: Marcelle Jeffries, [address] [place] [address] [address], [place], [address] . tel:[phone] OFFICE QRUDP-KUP-FD [employer] [address], [place], [place], [address] , tel:[phone] [facility] Upper respiratory infection (chief complaint)Pa lpitations (chief complaint)Ch ronic Conditions (chief complaint)ch ronic conditions (chief complaint) PalpitationsM ixed hyperlipidemi aClass 1 obesity due to excess calories with body mass index (BMI) of 32.0 to 32.9 in adult, unspecified whether serious comorbidity presentEssent ial hypertensionA cute URI 3 Mervin Ibanez. [address] [facility], [address], [place], [place], [address], . tel:[phone] Referring Provider: Luís Samaniego, [address] [place] [address] [address], [place], [address] . tel:[phone] PREVENTATIVE -EST: [facility], [address], [place], [place], [address] , tel: [phone] [facility] preventive exam (chief complaint)Ch ronic Conditions (chief complaint) Encounter for general adult medical examination without abnormal findingsVitam in D deficiencyGas troesophageal reflux disease without esophagitisMi xed hyperlipidemi aAnxietyPalpi tationsFamily history of diabetes mellitusBody mass index [BMI] 31.0-31.9, adult 2 Mervin Ibanez. [address] [facility], [address], [place], [place], [address], . tel:[phone] Referring Provider: Marcelle Jeffries, [address] [place] [address] [address] , [place], [address] . tel:[phone] [facility], [address], [place], [place], [address] , tel:[phone] [facility] Leg cramps 2 Mervin Ibanez. [address] [facility], [address], [place], [place], [address], . tel:[phone] PREVENTATIVE -EST: [facility], [address], [place], [place], [address] , tel: [phone] [facility] preventive exam (chief complaint)Ch ronic Conditions (chief complaint) Body mass index [BMI] 34.0-34.9, adultEncounte r for preventive health examinationMi xed hyperlipidemi aClass 1 obesity with serious comorbidity and body mass index (BMI) of 34.0 to 34.9 in adult, unspecified obesity typeGastroeso phageal reflux disease without esophagitisVi tamin D deficiencyInf luenza vaccine refusedImpair ed fasting glucoseAnxiet y Nov- 1 Mervin Ibanez. [address] [place] [address], [address], [place], [place], [address], . tel:[phone] Referring Provider: Luís Samaniego, [address] [place] [address] [address], [place], [address] . tel:[phone] [facility], [address], [place], [place], [address] , tel:[phone] [facility] No Information 0 Wilma Kitchen. [address] [place] [address] [place], [address], [place]. tel:[phone] Referring Provider: Marcelle Jeffries, [address] [place] [address] [address], [place], [address] . tel:[phone] PREVENTATIVE -EST: 40-64 [facility], [address], [place], [address] , [place] tel:[phone] [facility] preventive exam (chief complaint)Ch ronic Conditions (chief complaint) Body mass index (BMI) 34.0-34.9, adultEncounte r for preventive health examinationMi xed hyperlipidemi aEssential hypertensionG astroesophage al reflux disease without esophagitisVi tamin D deficiency 0 Mervin Ibanez. [address] [facility], [address] , [place], [place], [address], [place]. tel:[phone] Referring Provider: Luís Samaniego, [address] [place] [address] [address] , [place], [address] . tel:[phone] [facility], [address], [place], [place], [address] , tel: [phone] [facility] No Information 9 Aden Staley. [address] [place] [address], [address], [place], [place], [address], . [phone] [facility], [address], [place], [place], [address] , tel: [phone] [facility] Body mass index (BMI) 36.0-36.9, adultEssentia l hypertensionM ixed hyperlipidemi aUpper respiratory tract infection, unspecified type Mervin Ibanez. [address] [place] [address], [address], [place], [place], [address], . [phone] Referring Provider: Luís Samaniego, [address] [place] [address] [address], [place], [address] . tel:[phone] [facility], [address], [place], [place], [address] , tel: [phone] [facility] Body mass index (BMI) 35.0-35.9, adultAnxietyM ixed hyperlipidemi aGastroesopha geal reflux disease, esophagitis presence not specifiedVita min D deficiencyRec urrent major depressive disorder, in partial remissionClas s 2 obesity without serious comorbidity with body mass index (BMI) of 35.0 to 35.9 in adult, unspecified obesity type Mervin Ibanez. [address] [place] [address], [address], [place], [place], [address], . [phone] Referring Provider: Luís Samaniego [address] [place] [address] [address], [place], [address] . [phone] [facility], [address], [place], [place], [address] , tel: [phone] [facility] Obesity, unspecifiedVi tamin D deficiencyGas troesophageal reflux disease without esophagitisVi sit for preventive health examination Mervin Ibanez. [address] [place] [address], [address], [place], [place], [address], . [phone] Referring Provider: Luís Samaniego, [address] [place] [address] [address], [place], [address] . tel:[phone] [facility], [address], [place], [address] , [place] tel: [phone] [facility] Gastroesophag eal reflux disease without esophagitisAn xietyHyperlip idemia, unspecified hyperlipidemi a typeVitamin D deficiencyVis it for preventive health examinationFa tigue, unspecified typePharyngit is, unspecified etiology 6 Mervindevan Ibanez. [address] [facility], [address], [place], [place], [address], [place]. tel:[phone] Referring Provider: Luís Samaniego, [address] [place] [address] [address], [place], [address] . tel:[phone] [facility], [address], [place], [address] , [place] tel: [phone] [facility] Joint painVitamin D deficiencyFeb rileMicroscop ic hematuriaHist ory of fall/At Risk For FallingScreen ing for unspecified condition Mervin Ibanez. [address] [facility], [address], [place], [place], [address], [place]. tel:[phone] Referring Provider: John Oseguera, [address] [place] [address], [address] . tel:[phone] [facility], [address], [place], [address] , [place] tel: [phone] [facility] Screening examination for pulmonary tuberculosis 3 Oumar Lopez. [address] [place] [address], [address], [place]. tel:[phone] Referring Provider: John Oseguera, [address] [place] [address], [address] . tel:[phone] [facility], [address], [place], [address] , [place] tel: [phone] [facility] FatigueWeight gainAnxietyHy perlipidemiaE sophageal refluxSeasona l allergiesFami ly history of type 2 diabetes mellitusVitam in D deficiency 3 Mervin Ibanez. [address], [address], [place], [place], [address], [place]. [phone] Referring Provider: John Oseguera, [address] [place] [address], [place], [address] . tel:[phone] [facility], [address], [place], [place], [address] , [place] tel: [phone] [facility] Anxiety state, unspecifiedOt her and unspecified hyperlipidemi aEsophageal reflux 3 Mervin Ibanez. [address], [address], [place], [place], [address], [place]. [phone] [facility], [address], [place], [address] , [place] tel: [phone] [facility] Pain in limbAnxiety state, unspecified 1 Mervin Ibanez. [address], [address], [place], [place], [address], [place]. [phone] [facility], [address], [place], [place], [address] , [place] tel: [phone] [facility] No Information 0 Mervin Ibanez. [address], [address], [place], [place], [address], [place]. [phone] [facility], [address], [place], [address] , [place] tel: [phone] [facility] LONG-TERM USE MEDS NECHYPERLIPID EMIA NEC/NOSCHEST PAIN NECVITAMIN D DEFICIENCY NOSMALAISE AND FATIGUE NEC 0 No Information [facility], [address], [place], [place], [address] , [place] tel: [phone] [facility] ERYTHEMATOUS COND NECALOPECIA NOSSEBORRHEAE SOPHAGEAL REFLUXANXIETY STATE NOS 0 Mervin Ibanez. [address], [address], [place], [place], [address], [place]. [phone] Family History Family Member Type Diagnosis Age At Onset Brother Problem Diabetes mellitus Mother Problem (finding) hypertension Mother Problem (finding) osteoarthritis Father Problem (finding) hypertension Father Problem (finding) Myocardial infarction Father Problem (finding) coronary arter iosclerosis (Cause Of ) Father Problem (finding) diabetes melli tus in first degree relative Brother Problem (finding) hypertension Father Problem (finding) dialysis Mother Problem (finding) raised blood lipids Father Problem (finding) Renal disease Immunizations Vaccine Date Status Comments Tdap administered Note: [facility] ; Source: Other Provider Payers Payer name Insurance type Covered constitution party ID Authoriza tiblayne(s) [facility] ACCESS BL [id number] Social History Type Description Quantity Date Captured [...] guidance, and counseling completed Referral Referred To: [address] [place] [address], [phone] Ordered: ABDOMINAL CAT W/O CONTRAST ordered Appointment [facility] [place] BOOKED Future Order: Radiology Order AB DOMINAL CAT W/O CONTRAST ([id number]), Sent on: Sent History Of Present Illness [...] Conditions HPI chronic conditions *See Chronic Conditions [facility] preventive exam : 4. Manuela ty: Term: 3. spontaneous: 1. Livin. The patient states using vasectomy for control. Last LMP was 06/22/2023. Patient's menses is absent. Details: she will see manager willow again in Aug 2024, states she had mammogram in Aug 2023- probably at [facility]. Negative for: breast discharge, breast lump(s) and [...] today for a preventive exam. She sees manager willow for well woman exams. She is , she does not smoke or drink alcohol. She does not take flu vaccines and did not have any COVID vaccines. She states she had a mammogram in Spring 2023, probably at [facility] - states it was fine and report went to manager willow- Dr Rahman. Colonoscopy was in December 2019- [...] notes she had a weekend trip to [facility], [address] She also notes she [...] generalized pain that is intermittent. 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 Last colon in [...] is . She declines vaccines. She sees manager willow for well woman exams- due to see [...] today for a preventive exam. She sees manager willow for well woman exam - due to [...] get vaccines.. Chronic Conditions *See Chronic Conditions [facility] preventive exam : 4. Manuela ty: Term: [...] She notes she has not been to manager willow this year. She is , she does [...] preventive exam. She notes she just saw manager willow for well woman exam. She is going to have mammogram next week and colonoscopy on 01/15. 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 Has 3 children [...] to Body mass index (BMI) 36.0-36.9, adult Disease process Dietary management e ducation, guidance, and counseling Related to Body mass index (BMI) 36.0-36.9, adult She is here today fo r a preventive exam. She sees manager willow for well woman exams. She is , she does not smoke or drink alcohol. She does not take flu vaccines and did not have any COVID vaccines. She states she had a mammogram in Spring 2023, probably at [facility] - states it was fine and report went to manager willow- Dr Rahman. Colonoscopy was in December 2019- [...] advise of changes. Related to Primary hypertension Dietary management e ducation, guidance, and counseling Related to Body mass index (BMI) 35.0-35.9, adult Disease prevention Prescribed activity/ exercise education Related to Body mass index (BMI) 35.0-35.9, adult Continue present karley n of care, medication is increased, to advise of progress. Related to Anxiety She notes she has lima d some left foot numbness/tingling off and on beginning 12/27 or 12/28. She notes she had a weekend trip to [facility], [address] She also notes she [...] D today Related to Vitamin D deficiency Disease process Prescribed activity/ exercise education Related to Body mass index (BMI) 35.0-35.9, adult Dietary management e ducation, guidance, and counseling Related to Body mass index (BMI) 35.0-35.9, adult Take MiraLax dailyIn crease fiber in your [...] is . She declines vaccines. She sees manager willow for well woman exams- due to see [...] mass index (BMI) 35.0-35.9, adult Disease process She notes she has pa in in [...] today Relat ed to Vitamin D deficiency Disease process Prescribed activity/ exercise education Related to Body mass index (BMI) 34.0-34.9, adult Dietary management e ducation, guidance, and counseling Related to Body mass index (BMI) 34.0-34.9, adult notes a 'fluttering' in her chest which [...] fo r a preventive exam. She sees manager willow for well woman exam - due to [...] She notes she has not been to manager willow this year. She is , she does [...] colonoscopy on 01/15. 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 She does not smoke or drink [...] conditions Related to Mixed hyperlipidemia Disease process Dietary management e ducation, guidance, and counseling Related to Body mass index (BMI) 34.0-34.9, adult Prescribed activity/ exercise education Related to Body mass index (BMI) 34.0-34.9, adult Assessments Type Assessment Date No Information Patient Care Teams Name Effective Dates (start - stop) Status Members No Information
--- OUTSIDE RECORDS SUMMARY | 2024-10-27 00:20 | XMS_ITS | Clinical Summary ---
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
--- OUTSIDE RECORDS SUMMARY | 2024-10-27 00:20 | XMS_ITS | Clinical Summary ---
Author Organization [facility] Address [address] [place] [address] Phone Care Team Providers Care Environmental Protection Officer Name Role Phone Marcelle Jeffries APN, SHOEMAKER APPRENTICE Primary Care Provider Allergies Active Allergy Reactions Criticality Noted Date [...] patient's age to complete this topic [place] [address] [place] [address] Care Teams Environmental Protection Officer Relationship Specialty Start Date End Date Marcelle Jeffries APN, SHOEMAKER APPRENTICE [id number] [facility] [address] [place] [address] PCP - General Advanced Practice Nurse 04/01/21
--- NOTE | 2024-10-27 07:29 | WPDHPUPDATE1 ---
History and Physical Update Update Date/Time: 10/27/24 07:29 History and Physical has been reviewed, including an updated exam of the patient. There are NO changes in the patient's condition. Risks, benefits, and alternatives have been discussed and questions answered. Patient agrees to proceed with procedure.
--- NOTE | 2024-10-27 07:29 | PM.HPGS ---
History of Present Illness History of Present Illness Consent: Risks, benefits, and alternatives have been discussed and questions answered. Patient agrees to proceed with procedure. Chief complaint: Post Menopausal Bleeding Narrative: Shaniqua South is a 49 year old female who is postmenopausal. She states she has had 5 to 6 episodes vaginal bleeding. Pelvic ultrasound revealed a thickened endometrium. It was recommended to undergo a D&C hysteroscopy. Risks of infection, bleeding, perforation, and possible pathology are reviewed. Patient voices understanding and agrees to proceed. Review of Systems Review of Systems: not repeated day of surgery; patient states no changes in status [facility] Past Medical History Medical History (Updated 10/27/24 @ 07:32 by Deedee Rahman MD) (normal spontaneous vaginal delivery) X3 Depression Anxiety Hypertension Social History Social History Smoking status: Never smoker Living arrangements: with family Spiritual care concerns: No Meds Home Medications and Allergies Home Medications ?Medication ?Instructions ?Recorded ?Confirmed ?Type buspirone 7.5 mg tablet 7.5 mg PO BID 10/20/24 10/20/24 History cholecalciferol (vitamin D3) 125 5,000 unit PO DAILY 10/20/24 10/20/24 History mcg (5,000 unit) tablet (Vitamin D3) hydrochlorothiazide 12.5 mg tablet 12.5 mg PO HS 10/20/24 10/20/24 History losartan 25 mg tablet 25 mg PO HS 10/20/24 10/20/24 History magnesium citrate 83.3 mg chewable 8,303 mg PO HS 10/20/24 10/20/24 History tablet omeprazole 40 mg capsule,delayed 40 mg PO DAILY 10/20/24 10/20/24 History release Allergies Allergy/AdvReac Type Severity Reaction Status Date / Time Sulfa (Sulfonamide Allergy Unknown Unknown Verified 10/20/24 10:18 Antibiotics) Exam Const: General: healthy appearing and alert Orientation/consciousness: patient oriented x3 Resp: Effort & Inspection: normal respiratory effort GI: GI Palp: Yes Soft to palpation, No Tenderness to palpation present (GI) and No Palpable mass present : External Female Exam: normal external appearance Speculum Exam - Vagina: normal appearance of the vagina and normal vaginal discharge Speculum Exam - Cervix: normal appearance of the cervix Bimanual exam- vagina & uterus: uterine size normal and consistency normal Bimanual Exam- Adnexa, other: normal adnexae and No adnexal tenderness Neuro: General: patient oriented x3 Assessment and Plan Assessment and plan (1) Post-menopausal bleeding: Code(s): N95.0 - Postmenopausal bleeding Status: Acute Assessment and Plan: Plan to proceed with D&C hysteroscopy
[2024-10-27 07:30] VITALS: BP 114/83; PULSE 74; RESP 16; TEMP 36.2; O2SAT 100
[2024-10-27 07:53] VITALS: BMI 35.4
[2024-10-27] MEDS: LACTATED RINGERS 1,000 ML 30 ML IV CONT (08:10)
[2024-10-27] MEDS: ACETAMINOPHEN 500 MG TABLET 1000 MG PO (08:15)
[2024-10-27 09:12] VITALS: BP 101/61; PULSE 65; RESP 18; O2SAT 96
--- NOTE | 2024-10-27 09:12 | W.PM.PROC2 ---
Procedure Note - Detailed Date of Procedure 10/27/24 Pre-op Diagnosis Post Menopausal Bleeding Post-op Diagnosis Same Procedure Performed D&C hysteroscopy Surgeon Deedee Rahman MD Anesthesia MAC Findings Uterus sounds to 8cm and appears grossly atrophic. Description of Procedure The patient was taken to the operating room and placed under anesthesia in the dorsal lithotomy position. She was prepped and draped in the usual sterile fashion. [place] speculum was placed in the vagina and the cervix grasped on the anterior lip with a tenaculum. The uterus was sounded to 8cm. The hysteroscope was placed and the endometrium appears grossly atrophic. With no abnormalities noted, the hysteroscope is removed. The sharp curette is used to curette endometrium until a good uterine cry is noted in all areas. All instruments are removed. Sponge, needle, and instrument counts are correct per the OR staff. Patient was awakened from anesthesia and taken to recovery in stable condition. Estimated Blood Loss 5 Drains No Packing No Pathology Yes (Endometrial curettings) Complications No immediate complications Condition Stable Disposition PACU
[2024-10-27 09:40] VITALS: BP 101/60; PULSE 53
[2024-10-27] MEDS: KETOROLAC 15 MG/ML VIAL (*BKC) IV PUSH (10:06)
[2024-10-27 10:10] VITALS: BP 115/80; PULSE 47
== END 2024-10-27 10:35 | disposition home or self-care (01) ==
PROVIDERS: PCP Internal Medicine; Visit Provider Obstetrics & Gynecology Gynecology
PROC: 0U5B8ZZ Destruction of Endometrium, Via Natural or Artificial Opening Endoscopic (ICD-10-PCS; CPT 58563; principal; 2024-10-27 09:15)
DX: N95.0 Postmenopausal bleeding (principal); E66.9 Obesity, unspecified; Z68.35 Body mass index [BMI] 35.0-35.9, adult
CPT/HCPCS: 58558; 88305; A9270; J1885; J2250; J2405; J2704; J3010; J7120

== ENCOUNTER 2025-02-18 08:38 | Outpatient (CLI) | payer BC, SELFPAY ==
--- NOTE | ~2025-02-18 | MM_ITS ---
EXAMINATION: MM screening simeon BI w lin HISTORY: Screening TECHNIQUE: Craniocaudal and mediolateral oblique 3-D tomosynthesis images were obtained and synthetic 2-D images were generated. CAD analysis was submitted and interpreted. COMPARISON: Comparison to multiple prior studies sequentially, with oldest reviewed study dated 01/12. BREAST PARENCHYMAL COMPOSITION: Not Dense: The breasts are almost entirely fatty. FINDINGS: There is no evidence of suspicious mass, calcification, or architectural distortion to sugg est malignancy in either breast. There has been no suspicious interval change. IMPRESSION: 1. No mammographic evidence of malignancy. 2. Recommend routine screening mammography in one year. BI-RADS Category 1: Negative Reviewed, dictated and finalized at location []
--- OUTSIDE RECORDS SUMMARY | 2025-02-18 08:50 | XMS_ITS | Clinical Summary ---
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 Name Role Phone Unavailable Primary Care Provider Unavailabl e Encounters Date Type Department Care Team Description 02/04/2025 External Device Data STL ABSTRACTION Provider, Abstract 02/03/2025 External Device Data STL ABSTRACTION Provider, Abstract 01/06/2025 External Device Data STL ABSTRACTION Provider, Abstract 12/23/2024 External Device Data STL ABSTRACTION Provider, Abstract 12/11/2024 External Device Data STL ABSTRACTION Provider, Abstract 12/09/2024 External Device Data STL ABSTRACTION Provider, Abstract from Last 3 Months Social History Tobacco Use Types Packs/Day Years Used Date Smoking Tobacco: Never Assessed Comments Unknown Sex and Gender Information Value Date Recorded Sex Assigned at Not on file 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
--- OUTSIDE RECORDS SUMMARY | 2025-02-18 08:50 | XMS_ITS | Referral Summary ---
Author Organization [facility] Address [address] [place] [address] Care Team Providers Care Principle Software Engineer Name Role Phone Luís Samaniego MD Primary Care Provider [phone] Encounters Date Type Department Care Team Description 12/12/2024 3:30 PM CDT Office Visit [facility] [place] [address] [place] [address] Karla Rangel NP Pruritus (Primary Dx) from Last 3 Months Allergies Active Allergy Reactions Criticality Noted Date Comments Citalopram Hydrobromide Other (See comments) Low Erythromycin Nausea only Reaction: Nausea, Sulfa (Sulfonamide Antibiotics) Hives,Other (See comments) Reaction: Hives, , Reaction: Unknown, , Medications losartan (COZAAR) 25 mg tablet 2 Active hydroCHLOROthiazi de (HYDRODIURIL) 12.5 mg tablet 2 Active busPIRone (BUSPAR) 7.5 mg tablet 2 Active omeprazole (PriLOSEC) 40 mg capsule Take 1 capsule (40 mg total) by mouth daily 1 Active cyclobenzaprine (FLEXERIL) 10 mg tabletIndications :Cervical radiculopathy Take 1 tablet (10 mg total) by mouth 3 (three) times a day as needed for muscle spasms 30 tablet 4 Active Additional Information Patient not taking.Reported on 12/12/2024 progesterone (PROMETRIUM) 200 mg capsule Active Active Problems No known active problems Immunizations Immunization Administration Dates Next Due Td, adsorbed 05/25/2005 Social History Tobacco Use Types Packs/Day Years Used Date Smoking Tobacco: Never Smokeless Tobacco: Never Alcohol Use Standard Drinks/Week Comments Yes 0 (1 standard drink = 0.6 oz pur e alcohol) Comments Unknown Sex and Gender Information Value Date Recorded Sex Assigned at Not on file 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 ACCESS CHOICE Care Teams Principle Software Engineer Relationship Specialty Start Date End Date Luís Samaniego MD PCP - General 12/13/16
--- OUTSIDE RECORDS SUMMARY | 2025-02-18 08:50 | XMS_ITS | Clinical Summary ---
Author Organization [facility] Address [address] [place] [address] Care Team Providers Care Ripening Room Hand Name Role Phone Luís Samaniego MD Primary Care Provider [phone] Allergies Active Allergy Reactions Criticality Noted Date [...] on 12/12/2024 progesterone (PROMETRIUM) 200 mg capsule 5 Active Active Problems No known active problems Encounters Date Type Department Care Team Description 12/12/2024 3:30 PM CDT Office Visit [facility] [place] [address] [place] [address] Karla Rangel NP Pruritus (Primary Dx) from Last 3 Months Immunizations Immunization Administration Dates Next Due Td, adsorbed 05/25/2005 Medical History Medical History Date Comments 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 Hx Other Medical 02-DERM Hx Other Medical [...] on file 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 Gender Identity Not on file Sexual Orientation [...] 12/12/2024 3:36 PM CDT Plan of Treatment Health Maintenance Due Date Last Done Comments Breast Cancer Screening-Mammogram 1975 Cervical Cancer Screening 1975 Colon Cancer Screening-Colonoscopy 1975 Depression Screening 1975 Hepatitis C Screening 1975 Hepatitis B Screening 1993 Regular Well Visit/Exam 18-64 1993 DTaP/Tdap/Td Vaccine (1 - Tdap) 05/26/2005 5 Influenza Vaccine (#1) 2025 Pneumococcal vaccine <65 Aged Out No longer eligible based on patient's age to complete this topic Insurance [facility] [employer] ACCESS CHOICE Care Teams Ripening Room Hand Relationship Specialty Start Date End Date Luís Samaniego MD PCP - General 12/13/16
--- OUTSIDE RECORDS SUMMARY | 2025-02-18 08:50 | XMS_ITS | Clinical Summary ---
Author Organization [facility] Address [address] [place] [address] Phone Care Team Providers Care Service Or Work Dispatcher Name Role Phone Marcelle Jeffries APN, ROUGE MIXER Primary Care Provider Allergies Active Allergy Reactions [...] 9:04 AM CDT Oxygen Saturation 99% 05/09/2023 9: 04 AM CDT Inhaled Oxygen Concentration - - Weight 105.4 kg (232 lb 5.8 oz) 05/09/2023 9:04 AM CDT Height 174 cm (5' 8.5) 05/09/2023 9:04 AM CDT Body Mass Index 34.82 05/09/2023 9:04 AM CDT Plan of Treatment Health Maintenance Due Date Last Done Comments Hepatitis C Virus (HCV) Screening 1975 Mammogram 1975 TdaP Immunization 1975 Hepatitis B Immunization (1 of 3 - 19+ 3-dose series) 1994 Pap Smear 1996 Cervical Cancer Screening (CCS) 2005 HPV/Cotest 2005 Discussion re Starting/Frequ ency of Mammograms 2015 Cologuard 2020 Colonoscopy 2020 Colorectal Cancer Screening 2020 Immunochemical Fecal Occult Blood 2020 SARS-COV-2 Immunization ( season) 2024 Influenza Immunization (#1) 2025 Respiratory Syncytial Virus (RSV) Immunization (Adult) (1 - 1-dose 75+ series) 2050 DTaP/Tdap/Td Immunization Discontinued 05/25/2005 Human Papillomavirus (HPV) Immunization Aged Out No longer eligible b ased on patient's age to complete this topic Meningococcal Immunization (ACWY) Aged Out No longer eligible based on patient's age to complete this topic Pneumococcal Immunization Combined Aged Out No longer eligible based on patient's age to complete this topic Rotavirus Immunization Aged Out No lo nger eligible based on patient's age to complete this topic Insurance [facility] Care Teams Service Or Work Dispatcher Relationship Specialty Start Date End Date Marcelle Jeffries APN, ROUGE MIXER [id number] [place] [address] PCP - General Advanced Practice Nurse 04/01/21
== END 2025-02-18 08:39 | disposition home or self-care (01) ==
LOC: ANHIMG 08:40
PROVIDERS: PCP Internal Medicine; Visit Provider Obstetrics & Gynecology Gynecology
DX: Z12.31 Encounter for screening mammogram for malignant neoplasm of breast (principal)
CPT/HCPCS: 77063; 77067